=== PATIENT | male | born 1970 | race Hispanic/Latino ===

== ENCOUNTER 2019-06-19 | Day surgery (SDC) | payer SELFPAY ==
[2019-06-19] MEDS ORDERED: PERCOCET 5/325M1 TAB PO (11:08)
== END 2019-06-19 11:46 | disposition home or self-care (01) | DRG 346 ==
PROC: 0D9P0ZZ Drainage of Rectum, Open Approach (ICD-10-PCS; principal; 2019-06-19)
DX: K61.1 Rectal abscess (principal)
CPT/HCPCS: C9290